=== PATIENT | female | born 1950 | race Asian ===

== ENCOUNTER 2022-10-22 09:43 | Inpatient (IN) | payer OTHER ==
[~2022-10-22] VITALS: Ht 149.9 cm; Wt 47.6 kg
--- NOTE | 2022-10-22 09:46 | NUR ---
BIBA BLS TO ER BED 2
--- NOTE | 2022-10-22 09:50 | NUR ---
72 y/o F BIBA home c/o left hip pain s/p mechanical fall. Patient A&Ox4, non-ambulatory, states falling onto ground level landing on L hip. 09/09, sharp/constant, radiating down left leg. Per EMS, pt with ground level fall while in bed putting on pajamas. Patient states she remained on ground and was able to get up and ambulate to restroom, however, unable to get back into bed after. Denies numbness, tingling, loss of sensation. +PMSC. No shortening, deformity, bruising noted. Denies LOC, head/neck/back pain. No blood thinners. EMS BS 122. ekg monitor in place. Bed locked in lowest position, side rails x 2 for pt safety. PMH: RA Meds: folic acid, methotrexate Allergies: sulfa
[2022-10-22 09:52] VITALS: BP 157/95
--- NOTE | 2022-10-22 10:00 | NUR ---
Dr. Martins is evaluating pt at bedside
[2022-10-22] MEDS ORDERED: ACETAMINOPHEN EXTRA STRENGTH 500 MG TAB PO ONE (10:10)
--- NOTE | 2022-10-22 10:27 | NUR ---
RAD at bedside
[2022-10-22 10:32] LABS: BASOPHILS % (AUTO) 0.4 % (0.0-2.0); HEMATOCRIT 38.6 % (36-48); HEMOGLOBIN 12.8 g/dL (12.0-16.0); LYMPHOCYTES # (AUTO) 0.4 K/uL (2.5-16.5); LYMPHOCYTES % (AUTO) 3.6 % (20.5-51.1); MEAN CORPUSCULAR HEMOGLOBIN 32 pg (27-31); MEAN CORPUSCULAR HGB CONC 33 g/dL (33-37); MEAN CORPUSCULAR VOLUME 94.7 fL (80-94); MONOCYTES # (AUTO) 0.4 K/uL (0.8-1.0); MONOCYTES % (AUTO) 4.2 % (1.7-9.3); NEUTROPHILS # (AUTO) 9.3 K/uL (1.8-7.7); NEUTROPHILS % (AUTO) 91.8 % (42.2-75.2); PLATELET COUNT (AUTO) 219 K/uL (140-450); RED BLOOD CELL COUNT(AUTO) 4.08 MIL/uL (4.20-5.40); WHITE BLOOD COUNT (AUTO) 10.1 K/uL (4.8-10.8)
[2022-10-22 10:34] LABS: ALBUMIN 3.3 g/dL (3.4-5.0); ANION GAP 15.3 (8-16); ASPARTATE AMINOTRANSFERASE 31 U/L (15-37); CARBON DIOXIDE 26.5 mmol/L (21-32); CHLORIDE 101 mmol/L (98-107); CREATININE 0.7 mg/dL (0.6-1.3); GLUCOSE 140 mg/dL (74-106); POTASSIUM 3.8 mmol/L (3.5-5.1); SODIUM SERUM 139 mmol/L (136-145); UREA NITROGEN, BLOOD 24 mg/dL (7-18)
--- NOTE | 2022-10-22 12:16 | NUR ---
Dr. Yancey evaluating pt at bedside
[2022-10-22] MEDS ORDERED: HYDROcodone/APAP 5/325 MG 1 TAB TAB PO PRN (13:20)
[2022-10-22] MEDS ORDERED: LORazepam 1 MG TAB PO PRN (13:20)
[2022-10-22] MEDS ORDERED: MAG SULF 2000 MG/WATER PREMIX 50 ML IV PRN (13:20)
[2022-10-22] MEDS ORDERED: ONDANSETRON 4 MG/2 ML VIAL IVP PRN (13:20)
[2022-10-22] MEDS ORDERED: ZOLPIDEM 5 MG TAB PO PRN (13:20)
[2022-10-22] MEDS ORDERED: ACETAMINOPHEN 325 MG TAB PO PRN (13:20)
[2022-10-22] MEDS ORDERED: KCL 20 MEQ/WATER INJ PREMIX 200 ML IV PRN (13:20)
[2022-10-22] MEDS: NACL 0.9% 1,000 ML IV SCH (13:59)
--- NOTE | 2022-10-22 14:58 | NUR ---
Purewick in place.
--- NOTE | 2022-10-22 15:32 | NUR ---
800cc void via Purewick. Patient assisted with gown, linens, diaper change. pvc monitor remains in place. Pt denies pain at this time. Bed locked in lowest position, side rails x 2. All pt needs met.
--- NOTE | 2022-10-22 16:11 | NUR ---
TORB order received from Nolvia Woods for 2D Echocardiogram. Unable to place order; callback number not in service.
--- NOTE | 2022-10-22 16:27 | NUR ---
Paged Dr. Vargas regarding Dr. Woods's echocardiogram order; requiring name of glue mill operator to read results.
--- NOTE | 2022-10-22 16:29 | NUR ---
Dr. Vargas with page back, advise of issue ordering echocardiogram. Dr. Vargas states he will place order in 15 minutes.
[2022-10-22] MEDS ORDERED: HYDROcodone/APAP 10/325 MG 1 TAB TAB PO PRN (18:05)
--- NOTE | 2022-10-22 18:50 | NUR ---
Dr. Woods called requesting echocardiogram results; advised cdl service technician did not complete exam. I called RT Jay who states he will reach out to bail bond agent to return to complete echo.
--- NOTE | 2022-10-22 19:34 | NUR ---
Report given to NEYDA Prasad.
[2022-10-22] MEDS ORDERED: FOLI1TAB89 PO (19:36)
[2022-10-22] MEDS ORDERED: MEX2.5 PO (19:36)
--- NOTE | 2022-10-22 23:00 | NUR ---
PT TAKEN TO MS 122B. ENDORSED TO NEYDA KWONG. MORNING LAB ORDERS PUT IN REQUESTED BY DR. GARLAND BY PHONE. UNABLE TO LOCATE DR. GARLAND IN PROVIDER LIST.
--- NOTE | 2022-10-22 23:08 | NUR ---
Patient will be admitted to care of Dr. Vargas. Admited to Med/Surg. Will go to room 122B. Belongings list completed. Report to NEYDA Pineda.
--- NOTE | 2022-10-22 23:15 | NUR ---
PATIENT WAS ADMITTED TO THE UNIT FROM ER WITH THE CC: OF LEFT HIP PAIN. DX: LEFT FEMORAL NECK FRACTURE. PATIENT AAOX4 ON ROOM AIR. NO SOB NOTED. BREATHING NORMAL WITH SYMMETRICAL RISE AND FALL OF THE CHEST.ALL SAFETY PRECAUTIONS ARE IN PLACE. ORIENTED TO CALL LIGHT, TV, PHONE , ROOM, STAFF. PATIENT IS KEPT CLEAN, DRY AND COMFORTABLE. NO COMPLAINTS OF PAIN AT THIS TIME. MRSA SCREENING DONE.
--- NOTE | 2022-10-23 | NUR ---
INSTRUCTED PATIENT TO BE NPO WITH UNDERSTANDING.
[2022-10-23] MEDS: NACL 0.9% 1,000 ML IV SCH (01:50)
[2022-10-23 06:01] LABS: BASOPHILS % (AUTO) 0.2 % (0.0-2.0); EOSINOPHILS % (AUTO) 0.1 % (0.0-4.0); HEMATOCRIT 37.9 % (36-48); HEMOGLOBIN 12.4 g/dL (12.0-16.0); LYMPHOCYTES # (AUTO) 1.8 K/uL (2.5-16.5); MEAN CORPUSCULAR HEMOGLOBIN 31 pg (27-31); MEAN CORPUSCULAR HGB CONC 33 g/dL (33-37); MEAN CORPUSCULAR VOLUME 95.4 fL (80-94); MONOCYTES # (AUTO) 0.9 K/uL (0.8-1.0); NEUTROPHILS # (AUTO) 8.6 K/uL (1.8-7.7); NEUTROPHILS % (AUTO) 75.7 % (42.2-75.2); PLATELET COUNT (AUTO) 230 K/uL (140-450); RED BLOOD CELL COUNT(AUTO) 3.98 MIL/uL (4.20-5.40); RED CELL DISTRIBUTION WIDTH 14.2 % (11.6-13.7); WHITE BLOOD COUNT (AUTO) 11.3 K/uL (4.8-10.8)
[2022-10-23 06:20] LABS: PROTHROMBIN TIME 10.1 secs (10.8-13.4)
[2022-10-23 06:29] LABS: ANION GAP 0.6 (8-16); CARBON DIOXIDE 22.7 mmol/L (21-32); CHLORIDE 103 mmol/L (98-107); CREATININE 0.6 mg/dL (0.6-1.3); GLUCOSE 73 mg/dL (74-106); POTASSIUM 3.3 mmol/L (3.5-5.1); SODIUM SERUM 123 mmol/L (136-145); UREA NITROGEN, BLOOD 27 mg/dL (7-18)
--- NOTE | 2022-10-23 07:26 | NUR ---
ENDORSED PATIENT TO DAY SHIFT NURSE FOR CONTINUITY OF CARE. PATIENT STABLE.
--- NOTE | 2022-10-23 07:27 | NUR ---
RECEIVED REPORT FROM CHEESE PROCESSOR NURSE FOR CONTINUITY OF CARE. PT IN BED AWAKE AT THIS TIME, WATCHING TELEVISION . RESPIRATIONS ARE EVEN AND UNLABORED ON ROOM AIR. NO SIGNS OF DISTRESS NOTED. NO COMPLAINTS OF PAIN OR DISCOMFORT AT THIS TIME. PT IS ALERT AND ORIENTED X4, ABLE TO VERBALIZE NEEDS, ABLE TO FOLLOW COMMANDS. ABD IS NONTENDER, NONDISTENDED WITH BOWEL SOUNDS PRESENT. PT IS NPO EXCEPT FOR MEDS AT THIS TIME, DUE TO SCHEDULED SURGERY. PT HAS IV TO R HAND, 22G RUNNING NS AT 80ML/HR. SKIN IS WARM, DRY, AND INTACT. CALL LIGHT WITHIN REACH. ALL SAFETY MEASURES IN PLACE.
[2022-10-23 08:00] VITALS: BP 135/77
[2022-10-23] MEDS: DOCUSATE SODIUM 100 MG GELCAP PO SCH (09:15)
[2022-10-23] MEDS ORDERED: KCL 20 MEQ/WATER INJ PREMIX 200 ML IV SCH (09:15)
[2022-10-23] MEDS: POTASSIUM CHLORIDE 10 MEQ TABER PO PRN (09:15)
--- NOTE | 2022-10-23 09:16 | NUR ---
ADMINISTERED SCHEDULED MEDICATIONS. EDUCATED PT REGARDING MEDS ADMINISTERED. PT VERBALIZED UNDERSTANDING.
[2022-10-23] MEDS ORDERED: ROCURONIUM 50 MG/5 ML VIAL IV ONE ×2 (10:00→11:53)
[2022-10-23] MEDS ORDERED: PROPOFOL 200 MG/20 ML VIAL IV ONE ×2 (10:00→11:52)
[2022-10-23] MEDS ORDERED: SEVOFLURANE 250 ML BTL INH ONE (10:00)
[2022-10-23] MEDS ORDERED: fentaNYL citrate 0.05 MG/ML - 50mL vial IV ONE (10:00)
--- NOTE | 2022-10-23 10:06 | NUR ---
OR TEAM ON UNIT TO SUPPLY CHAIN BUYER PT FOR SCHEDULED PROCEDURE.
[2022-10-23 10:22] LABS: ANION GAP 20.5 (8-16); CARBON DIOXIDE 21.5 mmol/L (21-32); CHLORIDE 104 mmol/L (98-107); CREATININE 0.7 mg/dL (0.6-1.3); GLUCOSE 75 mg/dL (74-106); SODIUM SERUM 142 mmol/L (136-145); UREA NITROGEN, BLOOD 29 mg/dL (7-18)
[2022-10-23] MEDS ORDERED: BUPIVACAINE-MPF/EPI 0.5% 30 ML VIAL INJ ONE (10:22)
[2022-10-23] MEDS ORDERED: LIDOCAINE 1% 500 MG/50 ML VIAL ONE (10:22)
[2022-10-23] MEDS ORDERED: fentaNYL citrate 0.05 MG/ML VIAL ONE (10:32)
[2022-10-23] MEDS ORDERED: TRANEXAMIC ACID 1,000 MG/10 ML VIAL ONE (11:21)
[2022-10-23] MEDS ORDERED: SUCCINYLCHOLINE CHLORIDE 200 MG/10 ML VIAL IVP ONE (11:53)
[2022-10-23] MEDS ORDERED: GLYCOPYRROLATE 0.2 MG/ML VIAL ONE ×3 (11:54)
[2022-10-23] MEDS ORDERED: NEOSTIGMINE 1:1000 10 MG/10 ML VIAL ONE (11:54)
--- NOTE | 2022-10-23 11:58 | NUR ---
DC PLANNING ATTEMPTED TO MEET WITH PT AT BEDSIDE TO COMPLETE ASSESSMENT, HOWEVER, PT NOT IN ROOM. SW TO FOLLOW
[2022-10-23] MEDS ORDERED: hydrALAZINE 20 MG/ML VIAL IVP PRN (12:30)
[2022-10-23] MEDS ORDERED: LACTATED RINGERS 1,000 ML IV SCH (12:30)
[2022-10-23] MEDS ORDERED: HYDROmorphone 1 MG/ML AMP IVP PRN (12:30)
[2022-10-23] MEDS ORDERED: ONDANSETRON 4 MG/2 ML VIAL IVP PRN (12:30)
[2022-10-23] MEDS ORDERED: LABETALOL 20 MG/4 ML VIAL IVP PRN (12:30)
--- NOTE | 2022-10-23 13:20 | NUR ---
PT RETURNED FROM SURGERY. SLEEPING AT THIS TIME. RESPIRATIONS ARE EVEN AND UNLABORED, ON ROOM AIR. NO SIGNS OF DISTRESS NOTED.
--- NOTE | 2022-10-23 13:35 | NUR ---
PATIENT HAS BEEN SCREENED AND CATEGORIZED LOW NUTRITION RISK. PATIENT WILL BE SEEN WITHIN 7 DAYS OF ADMISSION. 10/29/[address]
--- NOTE | 2022-10-23 14:02 | NUR ---
DID ROUNDS ON PT. PT IN BED RESTING AT THIS TIME. RESPIRATIONS ARE EVEN AND UNLABORED ON ROOM AIR. NO SIGNS OF DISTRESS NOTED. NO SIGNS OF PAIN OR DISCOMFORT.
[2022-10-23 16:00] VITALS: BP 129/84
--- NOTE | 2022-10-23 17:51 | NUR ---
SCHEDULED MEDICATIONS DUE GIVEN. WILL CONTINUE TO MONITOR.
--- NOTE | 2022-10-23 19:15 | NUR ---
ENDORSED PT TO PRISON GUARD SUPERVISOR NURSE FOR CONTINUITY OF CARE. PT IS STABLE.
--- NOTE | 2022-10-23 19:16 | NUR ---
RECD. RESTING IN BED, AWAKE, A/OX4. RESPIRATION EVEN AND UNLABORED. IV OF NS INFUSING AT 80 ML/HR, RIGHT HAND G22. WITH PUREWICK IN PLACED, CONNECTED TO CANISTER BUT NO UA NOTED, WILL CONTINUE TO MONITOR. TOLERATING REGULAR DIET. DENIES PAIN 0/10.
[2022-10-23] MEDS: ECOTRIN 81 MG TABEC PO SCH (21:00)
--- NOTE | 2022-10-23 21:40 | NUR ---
Patient's Plan of Care was discussed and reviewed with MONICA MARIE, CALL LIGHT IS WITHIN THE REACH, WILL CONTINUE TO MONITOR PATIENT.
--- NOTE | 2022-10-23 22:00 | NUR ---
RESTING IN BED COMFORTABLY. NOTED 700 ML YELLOW CLEAR URINE IN THE CANISTER.
[2022-10-24] VITALS: BP 133/83
--- NOTE | 2022-10-24 | NUR ---
VS STABLE. WHEN INQUIRED IF SHE NEEDS PAIN MEDICATION, VERBALIZED SHE DOES NOT FEEL ANY PAIN.
--- NOTE | 2022-10-24 03:00 | NUR ---
ASSISTED WITH BEDPAN TO HAVE BM, ONLY HAVE A SMALL LOOSE BM. OGDEN COMFORTABLE IN BED WITH PILLOWS.
[2022-10-24 05:51] LABS: BASOPHILS % (AUTO) 0.2 % (0.0-2.0); EOSINOPHILS % (AUTO) 0.4 % (0.0-4.0); HEMATOCRIT 31.7 % (36-48); HEMOGLOBIN 10.7 g/dL (12.0-16.0); LYMPHOCYTES # (AUTO) 1.6 K/uL (2.5-16.5); LYMPHOCYTES % (AUTO) 15.2 % (20.5-51.1); MEAN CORPUSCULAR HEMOGLOBIN 32 pg (27-31); MEAN CORPUSCULAR HGB CONC 34 g/dL (33-37); MEAN CORPUSCULAR VOLUME 94.4 fL (80-94); MONOCYTES # (AUTO) 1.3 K/uL (0.8-1.0); MONOCYTES % (AUTO) 12.1 % (1.7-9.3); NEUTROPHILS # (AUTO) 7.7 K/uL (1.8-7.7); NEUTROPHILS % (AUTO) 72.1 % (42.2-75.2); PLATELET COUNT (AUTO) 218 K/uL (140-450); RED BLOOD CELL COUNT(AUTO) 3.36 MIL/uL (4.20-5.40); WHITE BLOOD COUNT (AUTO) 10.7 K/uL (4.8-10.8)
--- NOTE | 2022-10-24 06:15 | NUR ---
IV LEAKING, DISCONTINUED. NO COMPLAINT OF PAIN DURING THE SHIFT.
[2022-10-24 06:25] LABS: ANION GAP 6.3 (8-16); CARBON DIOXIDE 26.8 mmol/L (21-32); CHLORIDE 107 mmol/L (98-107); CREATININE 0.6 mg/dL (0.6-1.3); GLUCOSE 117 mg/dL (74-106); POTASSIUM 4.1 mmol/L (3.5-5.1); SODIUM SERUM 136 mmol/L (136-145); UREA NITROGEN, BLOOD 19 mg/dL (7-18)
--- NOTE | 2022-10-24 07:25 | NUR ---
CONDITION REMAIN STABLE. ENDORSED TO AM SHIFT NURSE FOR CONTINUITY OF CARE.
[2022-10-24 08:00] VITALS: BP 133/83
[2022-10-24] MEDS: ECOTRIN 81 MG TABEC PO SCH ×2 (08:56→20:25)
[2022-10-24] MEDS: DOCUSATE SODIUM 100 MG GELCAP PO SCH (08:56)
[2022-10-24 16:00] VITALS: BP 131/83
--- NOTE | 2022-10-24 18:01 | NUR ---
Pt. refused to change dressing at l. leg/hip d/t pain at this time. Addendum: 10/24/22 at 1806 by Agency Jp FAYE RN Suggested to administer pain medication but pt. refused to take any pain medication at this time.
--- NOTE | 2022-10-24 19:34 | NUR ---
GET THE REPORT FROM MORNING NURSE BRADLEY, PATIENT IS LYING ON BED, PATIENT IS ALERT ORIENTED X4, ALL FALL PRECAUTION MEASURE ARE IN PLACE, CALL LIGHT IS WITHIN THE REACH, WILL CONTINUE TO MONITOR PATIENT.
[2022-10-24 20:00] VITALS: BP 119/87
--- NOTE | 2022-10-24 20:23 | NUR ---
PATIENT IS LYING ON BED, NO ANY COMPLAIN OF PAIN OR SHORTNESS OF BREATH AT THIS TIME, VITAL SIGN IS WITHIN THE NORMAL RANGE, ALL SCHEDULE MEDICATION IS GIVEN PER DOCTOR ORDER, CALL LIGHT IS WITHIN THE REACH, WILL CONTINUE TO MONITOR PATIENT.
--- NOTE | 2022-10-25 00:12 | NUR ---
PATIENT IS LYING ON BED, NO ANY COMPLAIN OF PAIN OR SHORTNESS OF BREATH AT THIS TIME, VITAL SIGN IS WITHIN THE NORMAL RANGE, CALL LIGHT IS WITHIN THE REACH, WILL CONTINUE TO MONITOR PATIENT.
[2022-10-25 04:00] VITALS: BP 129/77
[2022-10-25 05:41] LABS: BASOPHILS % (AUTO) 0.3 % (0.0-2.0); EOSINOPHILS # (AUTO) 0.1 K/uL (0-0.4); EOSINOPHILS % (AUTO) 1.1 % (0.0-4.0); HEMOGLOBIN 11.7 g/dL (12.0-16.0); LYMPHOCYTES # (AUTO) 1.1 K/uL (2.5-16.5); LYMPHOCYTES % (AUTO) 11.9 % (20.5-51.1); MEAN CORPUSCULAR HEMOGLOBIN 32 pg (27-31); MEAN CORPUSCULAR HGB CONC 34 g/dL (33-37); MEAN CORPUSCULAR VOLUME 94.2 fL (80-94); MONOCYTES # (AUTO) 1.1 K/uL (0.8-1.0); MONOCYTES % (AUTO) 11.4 % (1.7-9.3); NEUTROPHILS # (AUTO) 7.2 K/uL (1.8-7.7); NEUTROPHILS % (AUTO) 75.3 % (42.2-75.2); PLATELET COUNT (AUTO) 216 K/uL (140-450); RED BLOOD CELL COUNT(AUTO) 3.72 MIL/uL (4.20-5.40); WHITE BLOOD COUNT (AUTO) 9.6 K/uL (4.8-10.8)
[2022-10-25 06:07] LABS: ANION GAP 8.6 (8-16); CHLORIDE 107 mmol/L (98-107); CREATININE 0.5 mg/dL (0.6-1.3); GLUCOSE 131 mg/dL (74-106); POTASSIUM 3.6 mmol/L (3.5-5.1); SODIUM SERUM 138 mmol/L (136-145); UREA NITROGEN, BLOOD 17 mg/dL (7-18)
--- NOTE | 2022-10-25 06:55 | NUR ---
GAVE THE REPORT TO MORNING NURSE BRADLEY FOR CONTINUOS OF CARE, PATIENT IS STABLE.
[2022-10-25] MEDS ORDERED: ENOXAPARIN 40 MG/0.4 ML SYR SUBQ ONE (07:44)
[2022-10-25] MEDS: ECOTRIN 81 MG TABEC PO SCH ×2 (08:28→22:08)
[2022-10-25] MEDS: DOCUSATE SODIUM 100 MG GELCAP PO SCH (08:28)
[2022-10-25] MEDS: ENOXAPARIN 40 MG/0.4 ML SYR SUBQ SCH ×2 (08:29→09:00)
--- NOTE | 2022-10-25 09:38 | NUR ---
BILLIE PLANNING REFERRAL PACKET SENT TO [facility] [place], [facility] AND [facility]. Addendum: 10/25/22 at 1105 by Jackelyn Burgos SS REFERRAL SENT TO [facility] Addendum: 10/25/22 at 1204 by Jackelyn Burgos SS OUTREACHED TO [facility] FOR ILYA,[phone], HOWEVER NO ANSWER, MESSAGE LEFT REQUESTING A RETURN PHONE CALL. Addendum: 10/25/22 at 1256 by Jackelyn LEY SECOND ATTEMPT. OUTREACHED TO [facility] FOR AUTH, HOWEVER, NO ANSWER. LEFT MESSAGE REQUESTING A RETURN PHONE CALL ALSO PROVIDED HOUSE SUPS NUMBER IN THE EVENT THIS BATCH UNLOADER IS NOT IN. PROVIDED HOUSE SUP WITH DETAILS. HOUSE SUP TO FOLLOW UP ON OBTAINING AUTH.
[2022-10-25] MEDS ORDERED: APIX2.5 PO (10:58)
[2022-10-25] MEDS ORDERED: HYDR-5080 PO (10:59)
[2022-10-25 16:00] VITALS: BP 129/77
--- NOTE | 2022-10-25 19:45 | NUR ---
A&OX 4.RESP.UNLABORED.SL PATENT.DRESSING AT SITE OF SURGERY DRY AND INTACT.NO C/O PAIN NOW.WILL CONT.MONITORING.CALL LIGHT IN REACH.
[2022-10-25 20:00] VITALS: BP 125/73
[2022-10-26 04:00] VITALS: BP 120/70
[2022-10-26 05:36] LABS: BASOPHILS % (AUTO) 0.2 % (0.0-2.0); EOSINOPHILS # (AUTO) 0.1 K/uL (0-0.4); EOSINOPHILS % (AUTO) 0.9 % (0.0-4.0); HEMATOCRIT 31.3 % (36-48); HEMOGLOBIN 10.3 g/dL (12.0-16.0); LYMPHOCYTES # (AUTO) 1.7 K/uL (2.5-16.5); LYMPHOCYTES % (AUTO) 13.8 % (20.5-51.1); MEAN CORPUSCULAR HEMOGLOBIN 31 pg (27-31); MEAN CORPUSCULAR HGB CONC 33 g/dL (33-37); MEAN CORPUSCULAR VOLUME 94.7 fL (80-94); MONOCYTES # (AUTO) 1.1 K/uL (0.8-1.0); NEUTROPHILS # (AUTO) 9.5 K/uL (1.8-7.7); NEUTROPHILS % (AUTO) 76.1 % (42.2-75.2); PLATELET COUNT (AUTO) 229 K/uL (140-450); RED CELL DISTRIBUTION WIDTH 13.9 % (11.6-13.7); WHITE BLOOD COUNT (AUTO) 12.5 K/uL (4.8-10.8)
--- NOTE | 2022-10-26 06:27 | NUR ---
SLEPT WELL.NO DISTRESS NOTED.CALL LIGHT WITHIN REACH.
[2022-10-26 06:35] LABS: ANION GAP 10.2 (8-16); CARBON DIOXIDE 28.3 mmol/L (21-32); CHLORIDE 105 mmol/L (98-107); CREATININE 0.6 mg/dL (0.6-1.3); POTASSIUM 3.5 mmol/L (3.5-5.1); SODIUM SERUM 140 mmol/L (136-145); UREA NITROGEN, BLOOD 21 mg/dL (7-18)
[2022-10-26 06:48] LABS: GLUCOSE 117 mg/dL (74-106)
[2022-10-26] MEDS ORDERED: ASPI-1822 PO (08:27)
[2022-10-26] MEDS ORDERED: ERGO-30 PO (08:27)
[2022-10-26] MEDS ORDERED: ENOXAPARIN 40 MG/0.4 ML SYR SUBQ ONE ×2 (08:32→13:35)
[2022-10-26] MEDS: DOCUSATE SODIUM 100 MG GELCAP PO SCH (08:40)
[2022-10-26] MEDS: ECOTRIN 81 MG TABEC PO SCH ×2 (08:40→20:49)
[2022-10-26 12:00] VITALS: BP 123/70
[2022-10-26] MEDS ORDERED: ENOXAPARIN 100 MG/ML SYR SUBQ ONE (13:34)
[2022-10-26 20:00] VITALS: BP 135/93
[2022-10-27 04:00] VITALS: BP 136/84
[2022-10-27 05:47] LABS: BASOPHILS # (AUTO) 0.1 K/uL (0.00-0.22); BASOPHILS % (AUTO) 0.8 % (0.0-2.0); EOSINOPHILS # (AUTO) 0.2 K/uL (0-0.4); EOSINOPHILS % (AUTO) 2.3 % (0.0-4.0); HEMATOCRIT 29.4 % (36-48); HEMOGLOBIN 9.7 g/dL (12.0-16.0); LYMPHOCYTES # (AUTO) 2.3 K/uL (2.5-16.5); LYMPHOCYTES % (AUTO) 25.5 % (20.5-51.1); MEAN CORPUSCULAR HEMOGLOBIN 31 pg (27-31); MEAN CORPUSCULAR HGB CONC 33 g/dL (33-37); MEAN CORPUSCULAR VOLUME 94.5 fL (80-94); MONOCYTES # (AUTO) 0.8 K/uL (0.8-1.0); MONOCYTES % (AUTO) 8.9 % (1.7-9.3); NEUTROPHILS # (AUTO) 5.8 K/uL (1.8-7.7); NEUTROPHILS % (AUTO) 62.5 % (42.2-75.2); PLATELET COUNT (AUTO) 245 K/uL (140-450); RED BLOOD CELL COUNT(AUTO) 3.11 MIL/uL (4.20-5.40); RED CELL DISTRIBUTION WIDTH 14.2 % (11.6-13.7); WHITE BLOOD COUNT (AUTO) 9.2 K/uL (4.8-10.8)
[2022-10-27 06:23] LABS: ANION GAP 9.6 (8-16); CARBON DIOXIDE 28.8 mmol/L (21-32); CHLORIDE 107 mmol/L (98-107); CREATININE 0.5 mg/dL (0.6-1.3); GLUCOSE 99 mg/dL (74-106); POTASSIUM 3.4 mmol/L (3.5-5.1); SODIUM SERUM 142 mmol/L (136-145); UREA NITROGEN, BLOOD 19 mg/dL (7-18)
--- NOTE | 2022-10-27 08:00 | NUR ---
RECEIVED PATIENT FROM PM NURSE, ALERT AND ORIENTED, ABLE TO VERBALIZE NEEDS, NO C/O PAIN OR DISCOMFORT AT THIS TIME, WILL ASSUME ALL CARE OF PATIENT
[2022-10-27] MEDS: DOCUSATE SODIUM 100 MG GELCAP PO SCH (09:58)
[2022-10-27] MEDS: ECOTRIN 81 MG TABEC PO SCH ×2 (09:58→20:29)
[2022-10-27 14:00] VITALS: BP 133/84
--- NOTE | 2022-10-27 16:36 | NUR ---
PATIENT HAS RASH ON LEFT SIDE OF BUTTOCK, NOTIFIED DR. ALMENDAREZ AND ORDER OBTAINED FOR [facility] TOPICAL CREAM BID
[2022-10-27 20:00] VITALS: BP 131/83
[2022-10-27] MEDS: POTASSIUM CHLORIDE 10 MEQ TABER PO PRN (20:29)
[2022-10-27] MEDS: NYSTATIN CRE 100 MU/GM 15 GM TUBE TP SCH (21:00)
[2022-10-28 04:00] VITALS: BP 129/78
--- NOTE | 2022-10-28 07:05 | NUR ---
RECEIVED PATIENT FROM PM NURSE, ALERT AND ORIENTED, ABLE TO VERBALIZE NEEDS, NO C/O PAIN OR DISCOMFORT AT THIS TIME, WILL ASSUME ALL CARE OF PATIENT. WILL CONTINUE TO MONITOR.
[2022-10-28 08:00] VITALS: BP 134/83
[2022-10-28] MEDS: NYSTATIN CRE 100 MU/GM 15 GM TUBE TP SCH (09:00)
[2022-10-28] MEDS: DOCUSATE SODIUM 100 MG GELCAP PO SCH (09:00)
[2022-10-28] MEDS: ECOTRIN 81 MG TABEC PO SCH (09:45)
--- NOTE | 2022-10-28 10:26 | NUR ---
DC PLANNING: RECEIVED A CALL FROM [facility] SPOKE WITH NEHAL STATED THEY CAN ACCEPT PATIENT NEEDS AUTHORIZATION. CALLED [facility] SPOKE WITH SHAYY ROOT STATED WILL WORK ON AUTH FOR SNF AND [phone] . A[facility] FOR [facility]ED. CM TO FOLLOW Addendum: 10/28/22 at 1146 by Shyla Choi RN DC PLANNING: PATIENT GOT ACCEPTED AT [facility] CAN GO TO ROOM 19A #TO GIVE REPORT [phone] ARRANGED TRANSPORT WITH [facility] UPTIME WILL BE BETWEEN 3-4 PM. NOTIFIED LUISA FAYE.
[2022-10-28 10:45] LABS: BASOPHILS # (AUTO) 0.1 K/uL (0.00-0.22); BASOPHILS % (AUTO) 0.8 % (0.0-2.0); EOSINOPHILS # (AUTO) 0.1 K/uL (0-0.4); EOSINOPHILS % (AUTO) 1.2 % (0.0-4.0); HEMATOCRIT 32.7 % (36-48); LYMPHOCYTES # (AUTO) 1.2 K/uL (2.5-16.5); LYMPHOCYTES % (AUTO) 18.4 % (20.5-51.1); MEAN CORPUSCULAR HEMOGLOBIN 32 pg (27-31); MEAN CORPUSCULAR HGB CONC 34 g/dL (33-37); MONOCYTES # (AUTO) 0.3 K/uL (0.8-1.0); MONOCYTES % (AUTO) 4.3 % (1.7-9.3); NEUTROPHILS # (AUTO) 5.1 K/uL (1.8-7.7); NEUTROPHILS % (AUTO) 75.3 % (42.2-75.2); PLATELET COUNT (AUTO) 301 K/uL (140-450); RED BLOOD CELL COUNT(AUTO) 3.48 MIL/uL (4.20-5.40); RED CELL DISTRIBUTION WIDTH 13.8 % (11.6-13.7); WHITE BLOOD COUNT (AUTO) 6.8 K/uL (4.8-10.8)
[2022-10-28 11:06] LABS: ANION GAP 12.5 (8-16); CARBON DIOXIDE 31.6 mmol/L (21-32); CHLORIDE 100 mmol/L (98-107); CREATININE 0.8 mg/dL (0.6-1.3); GLUCOSE 168 mg/dL (74-106); POTASSIUM 4.1 mmol/L (3.5-5.1); SODIUM SERUM 140 mmol/L (136-145); UREA NITROGEN, BLOOD 21 mg/dL (7-18)
[2022-10-30] MEDS ORDERED: ERGOCALCIFEROL 50,000 IU SGL PO SCH (09:00)
== END 2022-10-28 15:35 | DRG 481 ==
LOC: MED 09:43 → MMU 13:23 → MTU 20:59
PROVIDERS: ADMIT Internal Medicine; ATTEND Internal Medicine
PROC: 0QS734Z Reposition Left Upper Femur with Internal Fixation Device, Percutaneous Approach (ICD-10-PCS; principal; 2022-10-23 10:30)
DX: S72.045A Nondisplaced fracture of base of neck of left femur, initial encounter for closed fracture (principal); E87.1 Hypo-osmolality and hyponatremia; Z20.822 Contact with and (suspected) exposure to COVID-19; W18.30XA Fall on same level, unspecified, initial encounter; M06.9 Rheumatoid arthritis, unspecified; E87.6 Hypokalemia; Z88.2 Allergy status to sulfonamides; Y93.89 Activity, other specified; Y92.89 Other specified places as the place of occurrence of the external cause; Y99.8 Other external cause status
CPT/HCPCS: 36415; 71045; 72192; 73502; 80048; 80053; 83735; 85025; 85610; 85730; 86886; 86900; 86901; 87081; 93005; 97112; 97116; 97163-GP; 97530; 99285; J0330; J0690; J1644; J1650; J2001; J2704; J2710; J3010; J3480; J3490; J7060; Q0092